=== PATIENT | female | born 1960 | race Caucasian/White ===

== ENCOUNTER 2016-04-18 12:25 | Observation (INO) | payer OTHER, MEDICAID ==
[~2016-04-18] VITALS: Ht 147.3 cm; Wt 66.7 kg
[~2016-04-18 12:25] MED LIST: ALBU18HF INHALATION; ALPR0.5T8 PO; CARV12.52 PO; DABI75CA3 PO; INSU100C8 SUBQ; OXYC1TAB24 PO
[2016-04-18 12:58] VITALS: BP 152/92; PULSE 92; RESP 20; O2SAT 100
--- NOTE | 2016-04-18 13:13 | NUR ---
Admit [facility] [place] Pt admitted to [facility] [place] approx 1215, direct via Dr Escobedo. Pt to have PICC line put in today, so no IV access until then. Pt is resting comfortably in bed, on RA, A&Ox3. Care continues
[2016-04-18] MEDS ORDERED: Ondansetron 2 mg/mL 2 mL Inj IVPUSH PRN (14:15)
[2016-04-18] MEDS ORDERED: Polyethylene Glycol (PEG) 17 Gm Powder PO PRN (14:15)
[2016-04-18] MEDS ORDERED: Alum-Mag Hydrox-Simeth 30 mL Suspension PO PRN (14:15)
[2016-04-18 14:43] LABS: BASOPHILS % (AUTO) 0.3 % (0-3); MONOCYTES % (AUTO) 10.4 % (4-12); Mean Corpuscular Hemoglobin 28.9 pg (27.0-35.0); Mean Corpuscular Volume 86.2 fL (81-100); NEUTROPHILS % (AUTO) 50.3 % (40-74); Platelet Count 354 bil/L (150-400)
[2016-04-18 15:06] LABS: ERYTHROCYTE SEDIMENTATION RATE 16 mm/hr (0-40)
--- NOTE | 2016-04-18 16:18 | PCM.HPMED ---
Subjective Date of Service Apr 18, 2016 Primary Provider: Admitting Physician: Gurdeep Jarrett Primary Care Physician: Vincent Attending Physician: Gurdeep Jarrett Admit Status: 23-Hour Observation, Admit to Blue Team Chief Complaint: Back pain History of Present Illness: This is a 55-year-old female with h/o IV drug use/hepatitis C, discitis involving T10-11 with associated vertebral osteomyelitis, chronic back pain, HTN , suicidal attempt, who had clinic appointment this morning with Dr. Escobedo after which she has been sent directly to [facility] for admission. She has been recently hospitalized on 03/16/16 for diskitis treatment with Vancomycin and cefepime. She opted to leave AMA on 03/23/16. She also was in [place] on for obstipation/vomiting evaluation, found to have discitis, but left AMA from [facility] on 02/03/2016 due to anxiety with her mother's health issues. During this admission patient report mid-thoracic back pain 8/10 which is sharp and constant. She states pain has been progressively getting worse and she is having hard times ambulating because of that. She takes Percocet at home. She denies chills, fever, nausea, vomiting, diarrhea, constipation, chest pain, shortness of breath, troubles urinating. She endorses weakness that has been progressively getting worse for about a month. She denies current alcohol and drug use. She has about 40 pack year smoking history but admits to currently smoking about three cigarettes a day. She is and lives alone in [place]. Review of Systems: A comprehensive review of system has been conducted and is negative with the exception mentioned in the history of present illness. Allergies Coded Allergies: citalopram (Verified Allergy, Intermediate, HALLUCINATE, 09/14/13) hydrocodone (Verified Allergy, Intermediate, HEADACHE, 09/14/13) hydromorphone (Verified Allergy, Intermediate, ACTS WEIRD, 09/14/13) paroxetine (Verified Allergy, Intermediate, ACTS WEIRD, 09/14/13) sertraline (Verified Allergy, Intermediate, HALLUCINATIONS, 09/14/13) acetaminophen (Verified Adverse Reaction, Intermediate, HEADACHE, 03/18/16) pt reports taking Percocet regularly without problems Home Medications Alprazolam 0.5 mg tid Coreg 12.5 mg bid Percocet 10/325 mg qid Albuterol Sulfate 200 Puff/18 gm inhaler prn PMH Hepatitis C Chronic back pain Ischemic colitis associated with low blood pressure, told not to use Tylenol or NSAIDs in 2002 Suicidal attempt COPD, GERD, Hypertension Surgical History Multiple gynecological surgeries Carpal tunnel b/l Trigger finger b/l Social History Hx Alcohol Use: No Hx Substance Use: Yes (Heroine use 21 years ago.) Smoking Status: Current Every Day Smoker Exam Vital Signs Vital Sign - Last Date Time Temp Pulse Resp B/P Pulse Ox O2 Delivery O2 Flow Rate FiO2 04/18/16 12:58 36.7 92 20 152/92 100 Room Air Exam General: Alert, Oriented X3 NAD Head: Normocephalic, atraumatic Eyes: SOLANGE, EOMI, no scleral Icterus Oropharynx: [place] moist oral mucosa Neck: Supple, trachea midline, no adenopathy Chest: Clear to auscultation B/L, mild wheezing and rhonchi on the right Heart: RRR, Normal S1, S2, no murmurs noted Abdomen: Soft, non-tender. Bowel sounds are normoactive. No guarding or rebound. Extremities: No cyanosis, clubbing or edema. Skin: No acute rashes or lesions noted Neuro: Cranial nerves II-XII intact, no focal findings. Psych: Normal judgement and insight. Lab and Diagnostics Result Diagram: 04/18/16 1350 04/18/16 1315 Microbiology Blood cultures pending X-Rays, CTs and MRIs FROM THE PREVIOUS ADMISSION: PROCEDURE: MRI THORACIC SPINE WITH AND WITHOUT CONTRAST ([id number]) INDICATIONS: back pain TECHNIQUE: Noncontrast sagittal T1 spin echo and T2 fast spin echo, sagittal STIR, axial T1 and T2 fast spin echo through the thoracic spine. After the administration of contrast, axial and sagittal T1 spin echo with fat saturation through the thoracic spine. COMPARISON: None. FINDINGS: Image quality: Excellent. Alignment and curvature: There is mild diffuse thoracic kyphosis. Mild grade 1 retrolisthesis of T12 on L1. Marrow: Severe STIR signal elevation within the T11 and T12 intervertebral discs is present. Spinal cord: Visualized spinal cord is of normal signal and size, without abnormal enhancement. Paraspinous soft tissues: No paravertebral masses. Paraspinous ill defined soft tissue enhancement and T2 signal elevation at T11-T12 is present, measuring 19 mm anteroposterior anteriorly. Disc space levels: There is fluid signal intensity within the T11-T12 disc space. Mild diffuse disc bulge is present, causing mild canal stenosis. No epidural abscess. Mild enhancement within the anterior epidural space. IMPRESSION: T11-T12 discitis, without associated epidural abscess. Mild disc bulge at T11- T12 is present, causing mild canal stenosis. There is paraspinous soft tissue edema and enhancement, without paraspinous abscess. Findings discussed with Dr. Jennings on 03.16.16 at 1610 hrs. Assessment & Plan Patient is a 55 year old female with h/o Hepatitis C and IVDA presenting to [facility] with back pain 11/21 associated with discitis at T10-11 and associated osteomyelitis. Prior hospitalization for discitis on 03/16/16, treated with Linezolid orally and Ertapenem IV. Discharged AMA on 03/23/16. # Discitis, T10-11, acute, present on admission - Clinically stable - PICC line to be placed in AM - Will check procalcitonin and CRP now - Blood cultures pending - Abx per Dr. Escobedo # Chronic back pain, present on admission - Percocet 10/325 mg PO q6h prn # Hypertension, chronic - Coreg 12.5 mg bid # Anxiety, chronic - Alprazolam 0.5 tid Status: stable Code: full Disposition: most likely home in 1-2 days with IV ABX Pain Evaluation: Adequate Pain Control GI Prophylaxis: Not indicated VTE Prophylaxis: SCDs Resuscitation Status: CPR: Attempt Resuscitation Attending Statement The patient was seen and examined together with Dr. Calabrese on 04/18/2016 and I agree with the history, exam and plan as outlined in the note above. SUKHWINDER CALABRESE DO Apr 18, 2016 16:18 Dwain Charles MD Apr 19, 2016 10:14
[2016-04-18] MEDS: ALPRAZolam 0.5 mg Tablet PO PRN (18:15)
[2016-04-18] MEDS: oxyCODONE-Acetamin 10-325 mg Tablet PO PRN (18:15)
[2016-04-18] MEDS ORDERED: CALC500T9 PO (18:23)
[2016-04-18] MEDS ORDERED: OXYC-466 PO (18:23)
[2016-04-18 18:45] VITALS: BP 153/94; PULSE 100; RESP 20; O2SAT 98
[2016-04-18 20:36] VITALS: BP 136/88; PULSE 94; RESP 20; O2SAT 98
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
[2016-04-19] MEDS: oxyCODONE-Acetamin 10-325 mg Tablet PO PRN ×4 (00:23→22:30)
[2016-04-19] MEDS: ALPRAZolam 0.5 mg Tablet PO PRN ×3 (01:51→16:35)
--- NOTE | 2016-04-19 04:33 | NUR ---
Uneventful night Patient has remained alert and oriented, reports back pain at 8/10, Percocet ineffective, but no increase in pain. Patient reports wanting to discharge and is hoping that PICC line can be placed early today. Cooperative and pleasant with care. Intentional rounding in place.
[2016-04-19 04:59] VITALS: BP 122/54; PULSE 84; RESP 20; O2SAT 97
[2016-04-19 12:55] VITALS: BP 106/67; PULSE 90; RESP 22; O2SAT 94
--- NOTE | 2016-04-19 18:59 | PCM.PNMED ---
Subjective Date of Service Apr 19, 2016 Subjective Pt had an uneventful night. She is clinically stable and asymptomatic. The only complain she has is back pain. Exam Vital Signs Vital Sign - Last Date Time Temp Pulse Resp B/P Pulse Ox O2 Delivery O2 Flow Rate FiO2 04/19/16 12:55 36.9 90 22 106/67 94 Room Air Intake and Output 04/18/16 04/18/16 04/19/16 Cumulative From/Thru 15:00 23:00 07:00 04/18/16 12:59 - 04/19/16 05:46 Intake Total 320 ml 300 ml 620 ml Output Total 100 ml 100 ml Balance 220 ml 300 ml 520 ml Intake Oral 320 ml 300 ml 620 ml Output Urine Total 100 ml 100 ml # Voids 2 2 4 # Bowel Movements 1 0 1 Exam General: Alert, Oriented X3 NAD Head: Normocephalic, atraumatic Neck: Supple Chest: Clear to auscultation B/L, mild wheezing and rhonchi on the right Heart: RRR, Normal S1, S2, no murmurs noted Abdomen: Soft, non-tender. Bowel sounds are normoactive. Extremities: No cyanosis, clubbing or edema. Psych: Normal judgement and insight. Lab and Diagnostics Result Diagram: 04/18/16 1350 04/18/16 1315 Microbiology Blood cultures pending X-Rays, CTs and MRIs FROM THE PREVIOUS ADMISSION: PROCEDURE: MRI THORACIC SPINE WITH AND WITHOUT CONTRAST ([id number]) INDICATIONS: back pain TECHNIQUE: Noncontrast sagittal T1 spin echo and T2 fast spin echo, sagittal STIR, axial T1 and T2 fast spin echo through the thoracic spine. After the administration of contrast, axial and sagittal T1 spin echo with fat saturation through the thoracic spine. COMPARISON: None. FINDINGS: Image quality: Excellent. Alignment and curvature: There is mild diffuse thoracic kyphosis. Mild grade 1 retrolisthesis of T12 on L1. Marrow: Severe STIR signal elevation within the T11 and T12 intervertebral discs is present. Spinal cord: Visualized spinal cord is of normal signal and size, without abnormal enhancement. Paraspinous soft tissues: No paravertebral masses. Paraspinous ill defined soft tissue enhancement and T2 signal elevation at T11-T12 is present, measuring 19 mm anteroposterior anteriorly. Disc space levels: There is fluid signal intensity within the T11-T12 disc space. Mild diffuse disc bulge is present, causing mild canal stenosis. No epidural abscess. Mild enhancement within the anterior epidural space. IMPRESSION: T11-T12 discitis, without associated epidural abscess. Mild disc bulge at T11- T12 is present, causing mild canal stenosis. There is paraspinous soft tissue edema and enhancement, without paraspinous abscess. Findings discussed with Dr. Jennings on 03.16.16 at 1610 hrs. Assessment & Plan Patient is a 55 year old female with h/o Hepatitis C and IVDA presenting to [facility] with back pain 11/21 associated with discitis at T10-11 and associated osteomyelitis. Prior hospitalization for discitis on 03/16/16, treated with Linezolid orally and Ertapenem IV. Discharged AMA on 03/23/16. # Discitis, T10-11, chronic, present on admission - Clinically stable w/shx of infection - Procalcitonin 0.05 - Blood cultures pending - PICC line as urine tox screen is negative - Start IV Vancomycin 1.25 g q12h. Start first dose today. Patient will continue with the treatment for 6 weeks as an outpatient. - Start Cipro 750 mg PO bid # Chronic back pain, present on admission - Percocet 10/325 mg PO q6h prn # Hypertension, chronic, stable - Coreg 12.5 mg bid # Anxiety, chronic, presumed stable - Alprazolam 0.5 tid Status: stable Code: full Disposition: discharged tomorrow with a home infusion company to follow her. GI Prophylaxis: Not indicated VTE Prophylaxis: SCDs Resuscitation Status: CPR: Attempt Resuscitation Attending Statement The patient was seen and examined together with Dr. Stevens on 04/19/2016 and I agree with the history, exam and plan as outlined in the note above. SUKHWINDER STEVENS DO Apr 19, 2016 18:58 Dwain Charles MD Apr 20, 2016 09:23
--- NOTE | 2016-04-19 19:32 | NUR ---
Antibiotics: Patient will be getting a PICC line placed tomorrow AM. Per Dr Escobedo infectious disease patient is to have her first dose of Vancomycin today. IV therapy placed a peripheral line in patient for her IV Antibiotic dose today. NOC nurse informed of the plan for Antibiotic to be given tonight.
[2016-04-19] MEDS ORDERED: 0.9% Sodium Chloride 250 ML ONE (19:54)
[2016-04-19 20:41] VITALS: BP 100/64; PULSE 87; RESP 20; O2SAT 96
--- NOTE | 2016-04-19 22:32 | NUR ---
IV site Patient's IV site became pink, puffy, and painful during Vancomycin infusion. Patient received 186/250ml of IV bag. Medication was infusing slowly at 100ml/hr. IV therapist placed IV site around 1900, but it took three attempts. MD paged at 2200 with information, verbal order to remove bad IV site and just to wait until PICC line is placed in the morning for next dose. Patient updated on plan and that MD is aware and okay with no IV access overnight and partial administration of the 2030 scheduled Vanco dose.
[2016-04-20] MEDS: ALPRAZolam 0.5 mg Tablet PO PRN ×2 (00:53→10:47)
[2016-04-20 05:18] VITALS: BP 114/68; PULSE 78; RESP 20; O2SAT 97
[2016-04-20] MEDS: oxyCODONE-Acetamin 10-325 mg Tablet PO PRN (07:55)
--- NOTE | 2016-04-20 11:57 | DRSVH ---
PROCEDURE: X-RAY PICC LINE PLACEMENT BY NURSE ([id number]) INDICATIONS: IV ANTIBIOTICS COMPARISON: None. FINDINGS: PICC was placed by the intravenous therapy team from the right side. Fluoroscopic spot fi lm demonstrates tip of PICC in the cavoatrial junction. IMPRESSION: Tip of PICC lies at the caval atrial junction. Dictated by: Alex Beltran M.D. on 04/20/2016 at 11:55 Approved by: Alex Beltran M.D. on 04/20/2016 at 11:55
--- NOTE | 2016-04-20 12:04 | NUR ---
Social Work: Brief Note Data: Pt is an 86 y/o female admitted for diskitis. Pt's PCP is not listed, pt's insurance is [employer]/disabled with [facility] Medicaid secondary. EMR reviewed, pt discussed in rounds. MD reports pt likely ready for d/c today and will need IVABX at d/c. CARDIOVASCULAR RADIOLOGIC TECHNOLOGIST referred to rotating calendar, [facility] is this week. CARDIOVASCULAR RADIOLOGIC TECHNOLOGIST called Kimberly Cantu with [facility] who did not answer the phone, CARDIOVASCULAR RADIOLOGIC TECHNOLOGIST left a message and gave access. CARDIOVASCULAR RADIOLOGIC TECHNOLOGIST called main line at [phone]. CARDIOVASCULAR RADIOLOGIC TECHNOLOGIST spoke with the pharmacist, Lyric who states pt's insurance will cover requested H&P, facesheet, labs, and d/c orders be faxed to them. Orders not yet available, CARDIOVASCULAR RADIOLOGIC TECHNOLOGIST faxed the rest of this information. CARDIOVASCULAR RADIOLOGIC TECHNOLOGIST text paged request to MD for prescription. CARDIOVASCULAR RADIOLOGIC TECHNOLOGIST will continue to follow. Assessment: Pt who is independent at baseline. Plan: Pt will d/c home via POV with [facility] IVABX at home. CARDIOVASCULAR RADIOLOGIC TECHNOLOGIST faxing informations, awaiting prescription from MD. CARDIOVASCULAR RADIOLOGIC TECHNOLOGIST will continue to follow. RAE Zapata
--- NOTE | 2016-04-20 14:22 | PCM.DIMED ---
SUKHWINDER CALABRESE DO 04/20/16 1422: Discharge Instructions Date of Service Apr 20, 2016 Dates of Hospitalization Apr 18, 2016 at 12:33 Discharge Diagnosis Discharge Diagnosis # Discitis, T10-11, chronic, present on admission, ongoing # Chronic back pain, present on admission # Hypertension, chronic, stable # Anxiety, chronic, presumed stable Medication Instructions Per Dr. Escobedo's instructions: 1. The home IV dose to start with should probably be around Vanco 1.25 g q.12 h. x 6 weeks with frequent followup on the drug levels as an outpatient, and I have written for these orders. 2. The Cipro dose should be 750 p.o. b.i.d. 3. Laboratory work will be done every Friday and should include weekly vancomycin trough, CBC, CMP and CRP. These should be faxed to my office. 4. I will see the patient weekly starting April 24 after her discharge. Diet No restrictions Activity No restrictions Call your provider Fever or Chills, Shortness of breath, Bleeding, Chest pain, Vomitting, Excessive diarrhea, Weakness (unilateral) Patient Instructions Follow-up Provider: Denis Escobedo MD Follow-up with PCP in: 1 week Dwain Charles MD 04/21/16 1125: SUKHWINDER CALABRESE DO Apr 20, 2016 14:22 Dwain Charles MD Apr 21, 2016 11:25
[2016-04-20] MEDS ORDERED: VANC1.252 IV (14:30)
[2016-04-20] MEDS ORDERED: CIPR750T4 PO (14:30)
--- NOTE | 2016-04-20 14:52 | NUR ---
Social Work: Discharge Data: Pt is on day 2 of hospitalization. EMR reviewed, d/c orders are in. PORT CRANE OPERATOR received prescriptions and d/c orders from . PORT CRANE OPERATOR spoke with Lyric with [facility] who states they can open with pt tomorrow and that they will call pt regarding a time for them to meet. No further d/c planning needs at this time. PORT CRANE OPERATOR will continue to follow if needs arise. Assessment: Pt who is independent at baseline. Plan: Pt will d/c home via POV today with [facility] for IVABX at home. No further d/c planning needs at this time. PORT CRANE OPERATOR will continue to follow if needs arise. REA Zapata
--- NOTE | 2016-04-20 15:17 | NUR ---
Discharge Patient given discharge orders. Patient given hard copies of prescriptions. Patient given medication list and explained when next dose is due. Patient given informational packet. Patient called friend for transportation at time of discharge.
--- NOTE | 2016-04-20 16:04 | PCM.DC.MED ---
Discharge Summary Date of Service Apr 20, 2016 Dates of Hospitalization Date of Hospital Admission Apr 18, 2016 at 12:33 Date of Discharge: Apr 20, 2016 Providers: Admitting Physician: Gurdeep Jarrett Primary Care Physician: Other,Physician Attending Physician: Gurdeep Jarrett Diagnosis at Time of Discharge Diagnosis at Time of Discharge # Discitis, T10-11, chronic, present on admission, ongoing # Chronic back pain, present on admission # Hypertension, chronic, stable # Anxiety, chronic, presumed stable Consultations Infectious disease, Dr. Escobedo Procedures XRay, CTs & MRIs FROM THE PREVIOUS ADMISSION: PROCEDURE: MRI THORACIC SPINE WITH AND WITHOUT CONTRAST ([id number]) INDICATIONS: back pain TECHNIQUE: Noncontrast sagittal T1 spin echo and T2 fast spin echo, sagittal STIR, axial T1 and T2 fast spin echo through the thoracic spine. After the administration of contrast, axial and sagittal T1 spin echo with fat saturation through the thoracic spine. COMPARISON: None. FINDINGS: Image quality: Excellent. Alignment and curvature: There is mild diffuse thoracic kyphosis. Mild grade 1 retrolisthesis of T12 on L1. Marrow: Severe STIR signal elevation within the T11 and T12 intervertebral discs is present. Spinal cord: Visualized spinal cord is of normal signal and size, without abnormal enhancement. Paraspinous soft tissues: No paravertebral masses. Paraspinous ill defined soft tissue enhancement and T2 signal elevation at T11-T12 is present, measuring 19 mm anteroposterior anteriorly. Disc space levels: There is fluid signal intensity within the T11-T12 disc space. Mild diffuse disc bulge is present, causing mild canal stenosis. No epidural abscess. Mild enhancement within the anterior epidural space. IMPRESSION: T11-T12 discitis, without associated epidural abscess. Mild disc bulge at T11- T12 is present, causing mild canal stenosis. There is paraspinous soft tissue edema and enhancement, without paraspinous abscess. Findings discussed with Dr. Jennings on 03.16.16 at 1610 hrs. Brief History Per Admitting Physician: Gurdeep Jarrett: This is a 55-year-old female with h/o IV drug use/hepatitis C, discitis involving T10-11 with associated vertebral osteomyelitis, chronic back pain, HTN , suicidal attempt, who had clinic appointment this morning with Dr. Escobedo after which she has been sent directly to [facility] for admission. She has been recently hospitalized on 03/16/16 for diskitis treatment with Vancomycin and cefepime. She opted to leave AMA on 03/23/16. She also was in [place] on for obstipation/vomiting evaluation, found to have discitis, but left AMA from [facility] on 02/03/2016 due to anxiety with her mother's health issues. During this admission patient report mid-thoracic back pain 8/10 which is sharp and constant. She states pain has been progressively getting worse and she is having hard times ambulating because of that. She takes Percocet at home. She denies chills, fever, nausea, vomiting, diarrhea, constipation, chest pain, shortness of breath, troubles urinating. She endorses weakness that has been progressively getting worse for about a month. She denies current alcohol and drug use. She has about 40 pack year smoking history but admits to currently smoking about three cigarettes a day. She is and lives alone in [place]. Hospital Course Patient is a 55 year old female with h/o Hepatitis C and IVDA presenting to [facility] with back pain 8/10 associated with discitis at T10-11 and associated osteomyelitis. Prior hospitalization for discitis on 03/16/16, treated with Linezolid orally and Ertapenem IV. Discharged AMA on 03/23/16. # Discitis, T10-11, chronic, present on admission - Clinically stable w/shx of infection - Procalcitonin 0.05 - Blood cultures pending - PICC line as urine tox screen is negative - Start IV Vancomycin 1.25 g q12h. Start first dose today. Patient will continue with the treatment for 6 weeks as an outpatient. - Start Cipro 750 mg PO bid - Pt to follow-up with Infectious Disease as an outpatient, pt to call for an appointment. # Chronic back pain, present on admission - Percocet 10/325 mg PO q6h prn # Hypertension, chronic, stable - Coreg 12.5 mg bid # Anxiety, chronic, presumed stable - Alprazolam 0.5 tid Status: stable Code: full Disposition: discharged home with a home infusion company to follow her. Exam Vital Signs (Last) Date Time Temp Pulse Resp B/P Pulse Ox O2 Delivery O2 Flow Rate FiO2 04/20/16 05:18 36.3 78 20 114/68 97 Room Air Exam General: Alert, Oriented X3 NAD Head: Normocephalic, atraumatic Eyes: SOLANGE, EOMI, no scleral Icterus Oropharynx: [place] moist oral mucosa Neck: Supple, trachea midline, no adenopathy Chest: Clear to auscultation B/L, mild wheezing and rhonchi on the right Heart: RRR, Normal S1, S2, no murmurs noted Abdomen: Soft, non-tender. Bowel sounds are normoactive. No guarding or rebound. Extremities: No cyanosis, clubbing or edema. PICC line in place, right arm Skin: No acute rashes or lesions noted Neuro: Cranial nerves II-XII intact, no focal findings. Psych: Normal judgement and insight. Test 04/18/16 00:00 04/18/16 13:15 04/18/16 13:50 04/18/16 19:00 Procalcitonin < 0.05ng/mL (See Comment) Sodium Level 139mEq/L (134-144) Potassium Level 4.6mEq/L (3.5-5.2) Chloride Level 96mEq/L (97-108) Carbon Dioxide Level 27mmol/L (18-29) Blood Urea Nitrogen 9mg/dL (6-24) Creatinine 0.53mg/dL (0.57-1.00) Estimat Glomerular Filtration Rate 171mL/min (>59) Glucose Level 91mg/dL (60-99) Calcium Level 9.9mg/dL (8.5-10.1) Total Bilirubin 0.3mg/dL (0.0-1.2) Aspartate Amino Transf (AST/SGOT) 29U/L (0-50) Alanine Aminotransferase (ALT/SGPT) 19U/L (0-32) Alkaline Phosphatase 122U/L (25-150) C-Reactive Protein 0.3mg/dL (0.0-0.5) Total Protein 8.0g/dL (6.4-8.4) Albumin 4.1g/dL (3.4-5.0) White Blood Count 9.4th/mm3 (3.8-10.1) Red Blood Count 4.78mil/mm3 (3.90-5.20) Hemoglobin 13.8g/dL (12.0-15.6) Hematocrit 41.2% (35.0-46.0) Mean Corpuscular Volume 86.2fL (81-100) Mean Corpuscular Hemoglobin 28.9pg (27.0-35.0) Mean Corpuscular Hemoglobin Concent 33.5% (32.0-37.0) Red Cell Distribution Width 13.2% (12.3-15.4) Platelet Count 354bil/L (150-400) Neutrophils (%) (Auto) 50.3% (40-74) Lymphocytes (%) (Auto) 35.8% (14-46) Monocytes (%) (Auto) 10.4% (4-12) Eosinophils (%) (Auto) 3.0% (0-5) Basophils (%) (Auto) 0.3% (0-3) Erythrocyte Sedimentation Rate 16mm/hr (0-40) Hold Urine Received (Received) Urine Opiates Screen Negative Urine Methadone Screen Negative Urine Barbiturates Screen Negative Urine Amphetamines Screen Negative Urine Benzodiazepines Screen Negative Urine Cocaine Metabolite Screen Negative Urine Cannabinoids Screen Negative Test 04/19/16 07:38 Hold Purple Top Tube Received (Received) Hold [place] Top Tube Received (Received) Microbiology Results Blood cultures pending Discharge Medications Discharge Medications Carvedilol (Carvedilol) 12.5 Mg Tablet 12.5 MG PO BID (Reported) Ciprofloxacin (Ciprofloxacin) 750 Mg Tablet 750 MG PO BID Prescribed by: SUKHWINDER CALABRESE DO Vancomycin HCl/D5w (Vancomycin-D5w 1.25 G/250 ml) 1.25 Gm/250 Ml Plast..bag 1.25 GM IV BID Prescribed by: SUKHWINDER CALABRESE DO As needed Albuterol Sulfate (Ventolin HFA Inhaler) 200 Puff/18 Gm Inhaler INHALATION PRN For Shortness of Breath (Reported) Alprazolam (Alprazolam) 0.5 Mg Tablet 0.5 MG PO TID PRN PRN For Anxiety ( Reported) Calcium Carbonate (Tums) 500 Mg Tab.chew 1,000 MG PO DAILY PRN PRN For Dyspepsia or Heartburn (Reported) oxyCODONE-Acetaminophen 10-325 mg (oxyCODONE-Acetaminophen 10-325 mg) 1 Each Tablet 1 TAB PO Q6H PRN PRN For Pain (Reported) Additional med instructions Per Dr. Escobedo's instructions: 1. The home IV dose to start with should probably be around Vanco 1.25 g q.12 h. x 6 weeks with frequent followup on the drug levels as an outpatient, and I have written for these orders. 2. The Cipro dose should be 750 p.o. b.i.d. 3. Laboratory work will be done every Friday and should include weekly vancomycin trough, CBC, CMP and CRP. These should be faxed to my office. 4. I will see the patient weekly starting April 24 after her discharge. Followup Plan Discharge Diet: No restrictions Discharge Activity: No restrictions Follow-up Provider: Denis Escobedo MD Follow-up with PCP in: 1 week Attending Statement The patient was seen and examined together with Dr. Calabrese on 04/20/2016 and I agree with the history, exam and plan as outlined in the note above. SUKHWINDER CALABRESE DO Apr 20, 2016 16:03 Dwain Charles MD Apr 21, 2016 11:26
== END 2016-04-20 16:15 | disposition home or self-care (01) ==
LOC: MPC 12:33 → INTOOBSV 12:33
PROVIDERS: ADMIT Internal Medicine; ATTEND Family Medicine
DX: M46.44 Discitis, unspecified, thoracic region (principal); I10 Essential (primary) hypertension; F41.9 Anxiety disorder, unspecified; B18.2 Chronic viral hepatitis C; J44.9 Chronic obstructive pulmonary disease, unspecified; K21.9 Gastro-esophageal reflux disease without esophagitis; K55.9 Vascular disorder of intestine, unspecified; F15.90 Other stimulant use, unspecified, uncomplicated; F17.210 Nicotine dependence, cigarettes, uncomplicated; Z91.5 Personal history of self-harm
CPT/HCPCS: 36415; 36569; 77001; 80053; 82308; 85025; 85651; 86140; 87040; 87081; 96365; 96366; G0378; G0379; G0480; J3370; J7050

== ENCOUNTER 2016-05-07 17:52 | Inpatient (IN) | payer OTHER, MEDICAID ==
[~2016-05-07] VITALS: Ht 147.3 cm; Wt 66.4 kg
[~2016-05-07 17:52] MED LIST changes: +CALC500T9 PO; +CIPR750T4 PO; -DABI75CA3 PO; -INSU100C8 SUBQ; +OXYC-466 PO; -OXYC1TAB24 PO; +VANC1.252 IV
[2016-05-07 18:30] VITALS: BP 170/100; PULSE 92; RESP 20; O2SAT 98
--- NOTE | 2016-05-07 19:39 | ED.REPORT ---
HPI-General Illness Date of Service May 07, 2016 ED Provider: Gabriel Yadav MD History of Present Illness: OCC Pt is a 55 year old female with a hx of hepatitis, ischemic colitis, and chronic discitis presenting to the ED complaining of sharp 8/10 back pain. Associated symptoms include heartburn for the past few days and pain in her liver. Denies nausea, vomiting, dysuria, diaphoresis, diarrhea. She reports that the pain was at a 5 but increased in the last few days. The pt had an infection diagnosed in January 2016 and is on IV vancomycin and oral Cipro. She was sent to the ED today by Dr. Escobedo due to abnormal labs. The pt had labs today showing high WBC and high CRP. Nursing Notes Stated Complaint: SENT BY , BLOODWORK ISSUE Chief Complaint: General Complaint Nursing Notes Reviewed: Yes ([employer] not reconciled) Allergies: Coded Allergies: acetaminophen (Verified Adverse Reaction, Intermediate, HEADACHE, 05/07/16) pt reports taking Percocet regularly without problems citalopram (Verified Adverse Reaction, Intermediate, HALLUCINATE, 05/07/16) hydrocodone (Verified Adverse Reaction, Intermediate, HEADACHE, 05/07/16) hydromorphone (Verified Adverse Reaction, Intermediate, ACTS WEIRD, ) paroxetine (Verified Adverse Reaction, Intermediate, ACTS WEIRD, 05/07/16) sertraline (Verified Adverse Reaction, Intermediate, HALLUCINATIONS, ) Uncoded Allergies: surgical roque (Allergy, Unknown, 05/07/16) Scheduled Carvedilol (Carvedilol) 12.5 Mg Tablet 12.5 MG PO BID Ciprofloxacin Hcl (Cipro (eq) 500 MG-6 Tab Prepack) 1 Pkg Pkg 500 MG PO BID Lactobacillus Acidophilus (Acidophilus Probiotic) 1 Mg Tablet 1 TAB PO DAILY Vancomycin HCl/D5w (Vancomycin-D5w 1.25 G/250 ml) 1.25 Gm/250 Ml Plast..bag 1.25 GM IV BID Scheduled PRN Alprazolam (Alprazolam) 0.5 Mg Tablet 0.5 MG PO TID PRN PRN For Anxiety Calcium Carbonate (Tums) 500 Mg Tab.chew 1,000 MG PO DAILY PRN PRN For Dyspepsia or Heartburn oxyCODONE-Acetaminophen 10-325 mg (oxyCODONE-Acetaminophen 10-325 mg) 1 Each Tablet 1 TAB PO 5XD PRN PRN For Pain General Time Seen by MD: 19:31 Chief Complaint Back pain Hx Obtained From: Patient Arrived By: Walk-in Sudden in Onset?: No Onset Occurred: Onset unknown Symptom Duration: Since onset Location: : Back Quality: Painful Severity: Current: Pain level 8 out of 10 Severity: Maximum: Severe Recent Healthcare: Recent doctor visit, Recent hospitalization Similar Sx Previous: Yes Past Medical History Past Medical History Notes: Patient admitted April 18 through 04/20/2016 for T10 to T11 chronic discitis discharged on IV vancomycin at home and oral ciprofloxacin Noted March 16 through March 23 when she left AMA for discitis on Vanco plus cefepime Discitis originally diagnosed [place] in January 2016, but again left AMA Past Medical History Hepatitis C History of IVDA Chronic back pain Ischemic colitis Suicidal attempt Discitis at T10-T11, history of vertebral osteomyelitis Reports: COPD, GERD, Hypertension Past Surgical History Reports: Back/neck surgery Smoking History Current Every Day Smoker Social History Alcohol Use: Denies alcohol use Drug Use: IV drugs (per EMR) Other Social History: Good social support Ambulatory Status Independent Review of Systems Heartburn Full Review of Systems GI: Denies: Diarrhea, Nausea, Vomiting Female: Denies: Dysuria Musculoskeletal: Reports: Back pain Skin: Denies Diaphoresis Complete sys rev & neg: except as marked. Physical Exam Vital Signs Vital Signs Date Time Temp Pulse Resp B/P Pulse Ox O2 Delivery O2 Flow Rate FiO2 05/07/16 18:30 36.6 92 20 170/100 98 Initial VS: Reviewed, Vital signs abnormal (no fever, but HTN) Head / Eyes: Atraumatic, Normocephalic, PERRL ENT: Mucous membranes moist, Conjunctiva normal, No scleral icterus Respiratory: Breath sounds normal, Clear to auscultation, No respiratory distress Abdomen / GI: Soft, Non-tender (Including right upper quadrant), No guarding, No rebound, No distention Extremities: Vascular intact, Neuro intact, No swelling, No tenderness Skin: Warm, Dry, No cyanosis Neurologic: Alert, Oriented, Nonfocal Psychiatric: Mood/affect normal, Behavior normal, Normal thought content General/Constitutional: Awake, Alert, Not toxic appearing Behavior: Positive: Anxious, Tearful Appearance / Presentation: Positive: Uncomfortable Back: Atraumatic Don't appreciate palpable abnormality of spine. Interpretation & Diagnostics Interpretation & Diagnostics: PROCEDURE: MRI THORACIC SPINE WITH AND WITHOUT CONTRAST IMPRESSION: 1. T10/T11 osteomyelitis/discitis similar in appearance to the study dated 04/16/16. 2. Unchanged mild cord deformity without cord signal abnormality. Dictated by: Brittni Lau M.D. on 05/07/2016 at 21:08 Lab Results Interpretation Result Diagram: 05/07/16191805/07/161918 Test 05/07/16 19:19 White Blood Count 12.8th/mm3 (3.8-10.1) Red Blood Count 5.02mil/mm3 (3.90-5.20) Hemoglobin 14.3g/dL (12.0-15.6) Hematocrit 43.8% (35.0-46.0) Mean Corpuscular Volume 87.3fL (81-100) Mean Corpuscular Hemoglobin 28.5pg (27.0-35.0) Mean Corpuscular Hemoglobin Concent 32.6% (32.0-37.0) Red Cell Distribution Width 14.0% (12.3-15.4) Platelet Count 270bil/L (150-400) Neutrophils (%) (Auto) 66.1% (40-74) Lymphocytes (%) (Auto) 24.0% (14-46) Monocytes (%) (Auto) 7.6% (4-12) Eosinophils (%) (Auto) 1.7% (0-5) Basophils (%) (Auto) 0.2% (0-3) Prothrombin Time 9.7sec (8.1-12.5) Prothromb Time International Ratio 0.91ratio Sodium Level 139mEq/L (134-144) Potassium Level 4.4mEq/L (3.5-5.2) Chloride Level 102mEq/L (97-108) Carbon Dioxide Level 25mmol/L (18-29) Blood Urea Nitrogen 16mg/dL (6-24) Creatinine 0.79mg/dL (0.57-1.00) Estimat Glomerular Filtration Rate 108mL/min (>59) Glucose Level 89mg/dL (60-99) Lactic Acid Level 1.4mmol/L (0.4-2.0) Calcium Level 9.3mg/dL (8.5-10.1) Magnesium Level 1.9mg/dL (1.6-2.6) Total Bilirubin 0.2mg/dL (0.0-1.2) Aspartate Amino Transf (AST/SGOT) 21U/L (0-50) Alanine Aminotransferase (ALT/SGPT) 15U/L (0-32) Alkaline Phosphatase 122U/L (25-150) Total Protein 8.2g/dL (6.4-8.4) Albumin 4.0g/dL (3.4-5.0) Random Vancomycin Level 2.3ug/mL Rx Lab Results Interpretation: CBC possible leukocytosis CMP normal Blood cultures pending lactic acid pending UA, suspect contaminant - culture pending X-Ray Chest Interpretation Chest Xray Interpretation: IMPRESSION: Mild left basilar radiopacities. Differential considerations include atelectasis, aspiration, and infection. Dictated by: Brittni Lau M.D. on 05/07/2016 at 20:11 View: Portable, 1 view Interpretation / Wet Read by: Interpret - Radiologist Re-Eval/Medical Decision Med Decision/Clinical Course This is a 55-year-old female with known T10-T11 discitis secondary to IV drug abuse is been in the hospital since it was first diagnosed in January. She is currently receiving vancomycin at home, as well as oral Cipro-she has labs drawn every Friday by home health. She had labs drawn yesterday that now reveal climbing white count and sedimentation rate-so she was referred in. She is complaining of increase in back pain in the past several days. She denies any new numbness weakness or paresthesias, she does not think she has had a fever. She does appear fatigued. She denies cough or respiratory symptoms, she denies dysuria, she denies any redness or drainage around the PICC line site. On exam she is currently afebrile. She is complaining of some back pain and did receive some pain medicine in the department while workup was pursued. Continues to show ongoing leukocytosis, which is new. Blood cultures are been drawn. We have attempted to draw blood cultures through the PICC line as well to evaluate for the possibility of line sepsis however the line would not draw. Would not draw for lab or for the nurse, but I asked IV therapy to see if they could get a culture out of it. Chest x-ray is negative for visible infiltrate, radiologist reads possible atelectasis-however on my review I do not see any infiltrate or signs of infection and the patient does not have respiratory symptoms. Given the recurrent leukocytosis, repeat MRI of the thoracic spine to evaluate for the possibility of an epidural abscess was obtained-this continues to demonstrate discitis, but there are no signs of abscess or worsening, and no significant interval change. She was referred in by other infectious disease specialist. I discussed the case with him. The plan is to admit her to the hospital, start IV cefotetan, continue IV vancomycin, and ID will follow. Case is been discussed with the admitting hospitalist. Source of Hx: Old records Time of Eval: 20:08 Patient Status: Condition improved Re-Evaluation/Progress Note: Discussed which pain medications work well for the pt. Consultation #1: Referral / Consult Name: Denis Escobedo MD Call Returned at: 20:18 Note: If the source for the pain is not identified, prescribe Vanc and Cefepime. Consultation #2: Referral / Consult Name: Don Caldwell MD Consulted With: Hospitalist Call Returned at: 22:39 Float Nurse: Will see patient, Agrees with plan, Accepts admit Differential Diagnosis: Negative: Abdominal pain, Allergies, Fracture, G-tube repair/replacement, Hematoma, Neutropenia, Pneumonia Counseled Regarding: Diagnosis, Lab results, Need for follow-up, When/why to return to ED Discharge & Departure Primary Impression: Thoracic discitis Additional Impression: Leukocytosis Leukocytosis type: unspecified Qualified Code: D72.829 - Elevated white blood cell count, unspecified Disposition: ADMITTED TO HOSPITAL Discharge Condition All VS Reviewed: Yes Condition: Improved Referrals: OTHER,PHYSICIAN (PCP) Denis Escobedo MD Attestation Portions of this note were transcribed by Kitty Borrero. I, Dr. Yadav personally performed the history, physical exam and medical decision-making; I reviewed and confirmed the accuracy of the information in the transcribed note. Signed by: Mansi Vuong, 05/07/2016 and 2239. copies to: Denis Escobedo MD, Matthew F MD May 07, 2016 19:39 KITTY BORRERO May 07, 2016 20:06
[2016-05-07 19:41] LABS: BASOPHILS % (AUTO) 0.2 % (0-3); EOSINOPHILS % (AUTO) 1.7 % (0-5); MONOCYTES % (AUTO) 7.6 % (4-12); Mean Corpuscular Hemoglobin 28.5 pg (27.0-35.0); Mean Corpuscular Volume 87.3 fL (81-100); NEUTROPHILS % (AUTO) 66.1 % (40-74); Platelet Count 270 bil/L (150-400)
[2016-05-07 19:51] LABS: INR 0.91 ratio
[2016-05-07 19:56] LABS: Magnesium 1.9 mg/dL (1.6-2.6)
[2016-05-07] MEDS ORDERED: Ondansetron 2 mg/mL 2 mL Inj IVPUSH ONE (20:10)
--- NOTE | 2016-05-07 20:13 | DRSVH ---
PROCEDURE: X-RAY CHEST ONE VIEW, PORTABLE ([id number]) INDICATIONS: fever TECHNIQUE: One view of the chest was acquired. COMPARISON: None. FINDINGS: Surgical changes and devices: There is a right PICC, the tip of which is in the SVC. Lungs and pleura: Mild streaky opacities are present at the left lung base. The lungs are otherwise c lear. Mediastinum: Mediastinal contours appear normal. Heart size is normal. Bones and chest wall: No suspicious bony lesions. Overlying soft tissues appear unremarkable. IMPRESSION: Mild left basilar radiopacities. Differential considerations include atelectasis, aspirat ion, and infection. Dictated by: Brittni Lau M.D. on 05/07/2016 at 20:11 Approved by: Brittni Lau M.D. on 05/07/2016 at 20:12
[2016-05-07] MEDS: HYDROmorphone 1 mg/mL Inj IVPUSH PRN ×2 (20:27→22:40)
[2016-05-07 21:17] VITALS: BP 157/93; PULSE 87; RESP 14; O2SAT 97
[2016-05-07] MEDS ORDERED: CIPR-198 PO (21:18)
[2016-05-07] MEDS ORDERED: ACIDOPHILUS PROB1 M1 PO (21:18)
--- NOTE | 2016-05-07 21:20 | DRSVH ---
PROCEDURE: MRI THORACIC SPINE WITH AND WITHOUT CONTRAST ([id number]) INDICATIONS: inc wbc + esr on ABX for T11-T12 discitis TECHNIQUE: Noncontrast sagittal T1 spin echo and T2 fast spin echo, sagittal STIR, axial T1 and T2 fast spin ech o through the thoracic spine. After the administration of contrast, axial and sagittal T1 spin echo with fat saturation through the thoracic spine. COMPARISON: [facility], MR, MR THORACIC SPINE W&WO CON, 03/16/2016, 15:33. [facility], MR, MR THORACIC SPINE W&WO CON, 04/16/2016, 9:55. FINDINGS: Image quality: Excellent. Similar to the MRI of the thoracic spine dated 04/16/12, severe wedge compression deformities are pres ent at the inferior T10 and the superior T11 endplates. There is increased collapse of the T10 verteb ral body when compared with the MRI of the thoracic spine dated 03/16/16. There is diffuse marrow eugenia ma throughout these vertebral bodies. As before, there is homogeneous marrow enhancement throughout t he T10 and T11 vertebral bodies. Enhancement extends into the right transverse processes and the left pedicles. Fluid is present within the collapsed intervertebral disc space which demonstrates increas ed T2 signal, but no enhancement. Focal kyphotic deformity is redemonstrated. There is narrowing of t he canal, moderate to severe in degree. There is mild deformity of the cord without cord signal abnor mality. As before, there is marked thickening and enhancement of the surrounding paraspinous soft tis sues. There are no discrete hypointense foci to suggest new soft tissue abscess. No other canal stenosis or foraminal narrowing. No other wedge compression deformities. No pleural effusion. Visualized portions of the mediastinum are unremarkable. Visualized portions of the kidneys and upper abdomen are unremarkable. IMPRESSION: 1. T10/T11 osteomyelitis/discitis similar in appearance to the study dated 04/16/16. 2. Unchanged mild cord deformity without cord signal abnormality. Dictated by: Brittni Lau M.D. on 05/07/2016 at 21:08 Approved by: Brittni Lau M.D. on 05/07/2016 at 21:18
[2016-05-07] MEDS ORDERED: Cefotetan Inj 2,000 MG in IV Premix 1 EACH IV ONE (21:50)
[2016-05-07 22:20] LABS: APPEARANCE,URINE CLEAR (CLEAR,HAZY); COLOR,URINE YELLOW (YELLOW); OCCULT BLOOD,URINE SMALL (NEGATIVE); UROBILINOGEN,URINE NORMAL (NORMAL)
[2016-05-07] MEDS ORDERED: 0.9% Sodium Chloride 1,000 ML IV SCH (22:39)
[2016-05-07] MEDS ORDERED: Alum-Mag Hydrox-Simeth 30 mL Suspension PO PRN (22:40)
[2016-05-07] MEDS ORDERED: Polyethylene Glycol (PEG) 17 Gm Powder PO PRN (22:40)
[2016-05-07] MEDS ORDERED: Ondansetron 2 mg/mL 2 mL Inj IVPUSH PRN (22:40)
[2016-05-07 23:19] VITALS: BP 147/93; PULSE 85; RESP 18; O2SAT 96
--- NOTE | 2016-05-07 23:47 | PCM.HPMED ---
Subjective Date of Service May 07, 2016 Primary Provider: Admitting Physician: Don Caldwell MD Primary Care Physician: Other,Physician Attending Physician: Don Caldwell MD Chief Complaint: Worsening back pain History of Present Illness: Cami Salter is a 55 year old female with Hepatitis, Currently on therapy for Diskitis (monitored by Dr Escobedo) and ischemic colitis presenting to [facility] emergency department complaining of sharp 8/10 back pain. Patient reported this back pain is the same chronic back pain she has been having for the last few months. It improved when she was discharged from the hospital on 04/30 but has been worsening in the last few days. Same description as before mostly in the lumbar area with left sided predominance, no radiation, worsening with laying on her left side but improved if the turns on the opposite location. Associated symptoms include heartburn for the past few days and pain in her liver. Denies nausea, vomiting, dysuria, diaphoresis, diarrhea. No urinary or bowel dysfunction noted The pt had an infection diagnosed in January 2016 and is on IV vancomycin bid and oral Cipro. She was sent to the ED today by Dr. Escobedo due to abnormal labs that were drawn yesterday. The pt had labs today showing high WBC and high CRP. Case discussed with Dr Yadav, he spoke to Dr Escobedo who recommended adding Cefotetan IV tonight and admitted patient. Review of Systems: Pertinent positives as noted in HPI. All other systems were reviewed and are negative Allergies Coded Allergies: acetaminophen (Verified Adverse Reaction, Intermediate, HEADACHE, 05/07/16) pt reports taking Percocet regularly without problems citalopram (Verified Adverse Reaction, Intermediate, HALLUCINATE, 05/07/16) hydrocodone (Verified Adverse Reaction, Intermediate, HEADACHE, 05/07/16) hydromorphone (Verified Adverse Reaction, Intermediate, ACTS WEIRD, ) paroxetine (Verified Adverse Reaction, Intermediate, ACTS WEIRD, 05/07/16) sertraline (Verified Adverse Reaction, Intermediate, HALLUCINATIONS, ) Uncoded Allergies: surgical roque (Allergy, Unknown, 05/07/16) Home Medications From Discharge Summary Carvedilol (Carvedilol) 12.5 Mg Tablet 12.5 MG PO BID (Reported) Ciprofloxacin (Ciprofloxacin) 750 Mg Tablet 750 MG PO BID Prescribed by: SUKHWINDER CALABRESE, DO Vancomycin HCl/D5w (Vancomycin-D5w 1.25 G/250 ml) 1.25 Gm/250 Ml Plast..bag 1.25 GM IV BID Prescribed by: SUKHWINDER CALABRESE DO As needed Albuterol Sulfate (Ventolin HFA Inhaler) 200 Puff/18 Gm Inhaler INHALATION PRN For Shortness of Breath (Reported) Alprazolam (Alprazolam) 0.5 Mg Tablet 0.5 MG PO TID PRN PRN For Anxiety ( Reported) Calcium Carbonate (Tums) 500 Mg Tab.chew 1,000 MG PO DAILY PRN PRN For Dyspepsia or Heartburn (Reported) oxyCODONE-Acetaminophen 10-325 mg (oxyCODONE-Acetaminophen 10-325 mg) 1 Each Tablet 1 TAB PO Q6H PRN PRN For Pain (Reported) PMH Hepatitis C Chronic back pain Ischemic colitis associated with low blood pressure, told not to use Tylenol or NSAIDs in 2002 Suicidal attempt COPD, GERD, Hypertension Diskitis currently on antibiotic therapy . Surgical History Multiple gynecological surgeries Carpal tunnel b/l Trigger finger b/l Family History diabetes and hypertension Social History Hx Alcohol Use: No Hx Substance Use: Yes (Heroine use 21 years ago.) Hx Tobacco Use: Yes Smoking Status: Current Every Day Smoker Living Arrangement: with Family Exam Vital Signs Vital Sign - Last Date Time Temp Pulse Resp B/P Pulse Ox O2 Delivery O2 Flow Rate FiO2 05/07/16 21:17 87 14 157/93 97 Room Air 05/07/16 18:30 36.6 Exam General: Alert, Oriented X3 NAD Head: Normocephalic, atraumatic Eyes: SOLANGE, EOMI, no scleral Icterus Oropharynx: [place]pp[place] moist oral mucosa Neck: Supple, trachea midline, no adenopathy Chest: Clear to auscultation B/L, mild wheezing and rhonchi on the right Heart: RRR, Normal S1, S2, no murmurs noted Abdomen: Soft, non-tender. Bowel sounds are normoactive. No guarding or rebound. Extremities: No cyanosis, clubbing or edema. PICC line in place, right arm Skin: No acute rashes or lesions noted Neuro: Cranial nerves II-XII intact, no focal findings. Psych: Normal judgement and insight. Lab and Diagnostics Labs Laboratory Tests Test 05/07/16 19:19 05/07/16 21:59 White Blood Count 12.8th/mm3 (3.8-10.1) Red Blood Count 5.02mil/mm3 (3.90-5.20) Hemoglobin 14.3g/dL (12.0-15.6) Hematocrit 43.8% (35.0-46.0) Mean Corpuscular Volume 87.3fL (81-100) Mean Corpuscular Hemoglobin 28.5pg (27.0-35.0) Mean Corpuscular Hemoglobin Concent 32.6% (32.0-37.0) Red Cell Distribution Width 14.0% (12.3-15.4) Platelet Count 270bil/L (150-400) Neutrophils (%) (Auto) 66.1% (40-74) Lymphocytes (%) (Auto) 24.0% (14-46) Monocytes (%) (Auto) 7.6% (4-12) Eosinophils (%) (Auto) 1.7% (0-5) Basophils (%) (Auto) 0.2% (0-3) Prothrombin Time 9.7sec (8.1-12.5) Prothromb Time International Ratio 0.91ratio Sodium Level 139mEq/L (134-144) Potassium Level 4.4mEq/L (3.5-5.2) Chloride Level 102mEq/L (97-108) Carbon Dioxide Level 25mmol/L (18-29) Blood Urea Nitrogen 16mg/dL (6-24) Creatinine 0.79mg/dL (0.57-1.00) Estimat Glomerular Filtration Rate 108mL/min (>59) Glucose Level 89mg/dL (60-99) Lactic Acid Level 1.4mmol/L (0.4-2.0) Calcium Level 9.3mg/dL (8.5-10.1) Magnesium Level 1.9mg/dL (1.6-2.6) Total Bilirubin 0.2mg/dL (0.0-1.2) Aspartate Amino Transf (AST/SGOT) 21U/L (0-50) Alanine Aminotransferase (ALT/SGPT) 15U/L (0-32) Alkaline Phosphatase 122U/L (25-150) Total Protein 8.2g/dL (6.4-8.4) Albumin 4.0g/dL (3.4-5.0) Random Vancomycin Level 2.3ug/mL Rx Urine Color Yellow (YELLOW) Urine Appearance Clear (CLEAR,HAZY) Urine pH 6.0 (5.0-8.0) Urine Specific [place] 1.010 (1.003-1.035) Urine Protein Negativemg/dL (NEG,TRACE) Urine Glucose (UA) Negativemg/dL (NEGATIVE) Urine Ketones Negativemg/dL (NEGATIVE) Urine Occult Blood Small (NEGATIVE) Urine Nitrite Negative (NEGATIVE) Urine Bilirubin Negative (NEGATIVE) Urine Urobilinogen Normalmg/dL (NORMAL) Urine Leukocyte Esterase Trace (NEGATIVE) Urine RBC 0-2/hpf (0-2) Urine WBC 6-10/hpf (0-5) Urine Epithelial Cells Many/hpf (NONE-MOD) Urine Crystals None seen (NONE SEEN) Urine Bacteria Moderate/hpf (NONE-FEW) Urine Hyaline Casts None/lpf (NONE) Urine Granular Casts None seen (NONE SEEN) Urine Waxy Casts None seen (NONE SEEN) Urine Red Blood Cell Casts None seen (NONE SEEN) Urine White Blood Cell Casts None seen (NONE SEEN) Urine Mucus None seen (None Seen) Urine Trichomonas None seen (NONE SEEN) Urine Yeast None (NONE SEEN) Urinalysis Comment None Urine Culture Reflexed Indicated Microbiology 05/07/16 Blood Culture, Received Pending 05/07/16 Urine Culture, Received Pending Result Diagram: 05/07/16191805/07/161918 X-Rays, CTs and MRIs X-RAY CHEST ONE VIEW, PORTABLE 05/07 IMPRESSION: Mild left basilar radiopacities. Differential considerations include atelectasis, aspiration, and infection Dictated by: Brittni Lau M.D. on 05/07/2016 at 20:11 Approved by: Brittni Lau M.D. on 05/07/2016 at 20:12 MRI THORACIC SPINE WITH AND WITHOUT CONTRAST 05/07 IMPRESSION: 1. T10/T11 osteomyelitis/discitis similar in appearance to the study dated . 2. Unchanged mild cord deformity without cord signal abnormality. Dictated by: Brittni Lau M.D. on 05/07/2016 at 21:08 Approved by: Brittni Lau M.D. on 05/07/2016 at 21:18 Assessment & Plan 55 year old female with h/o Hepatitis C and IVDA presenting to [facility] with back pain associated with discitis at T10-11 and associated osteomyelitis. Send by Dr Escobedo due to worsening back pain as well as Leukocytosis on outpatient labs 1. Discitis, T10-11, chronic, present on admission. Under therapy Repeat MRI imaging showed no new changes no explain her persistent back pain - repeat Blood cultures pending, attempting to get blood cultures from PICC line to determine line infection - continue IV Vancomycin 1.25 g q12h, monitor Vanco trough - switching Cipro to IV Cefotetan IV - Dr Escobedo will follow in the morning with further recommendations 2. Acute on Chronic back pain, present on admission - Percocet 10/325 mg PO q6h prn - consider muscle relaxants or NSAIDS 3. Acute Leukocytosis. Present on admission Etiology unclear, could be stress. No New signs of infections with Urinalysis unremarkable and PICC line infection a possibility - repeat Blood cultures - Dr Escobedo to address any changes to current antibiotics regimen 4. Hypertension, chronic, stable Expect some elevation due to pain issue - continue Coreg 12.5 mg bid 5. Anxiety, chronic, presumed stable - Alprazolam 0.5 tid - Acetaminophen as needed for mild pain/fever/headache - Bowel regimen as needed - Antiemetic as needed Patient admitted under inpatient status with expected length of stay > 2 midnights for severity of present symptoms, complexities of treatment plan and risk for adverse event . Resuscitation Status: CPR: Attempt Resuscitation Don Caldwell MD May 07, 2016 22:52
--- NOTE | 2016-05-08 01:54 | NUR ---
Admit Pt arrived to [facility] room 242-2 at 2305 via WC. Pt easily transferred to bed w/o any assistance, no strength deficits. Pt A&Ox3 and appears to be an otherwise healthy normal lady, friendly and responsive. Pt oriented to room and call light for safety, patient knows to call for needs.
[2016-05-08 05:09] VITALS: BP 126/81; PULSE 89; RESP 17; O2SAT 92
[2016-05-08] MEDS: ALPRAZolam 0.5 mg Tablet PO PRN ×2 (05:37→20:29)
[2016-05-08] MEDS: oxyCODONE-Acetamin 10-325 mg Tablet PO PRN ×4 (05:37→20:29)
[2016-05-08 08:00] VITALS: BP 128/81; PULSE 85; RESP 18; O2SAT 94
--- NOTE | 2016-05-08 08:47 | NUR ---
Social Work: Screening Data: Pt is a 55 y/o female admitted for discitis T10-T11. Pt's PCP is not listed, pt's insurance is [employer] blind/disable with [facility] Medicaid secondary. Readmit score not listed. EMR reviewed. Per previous visit, pt went home with [facility] for IVABX at home. AUTO DRIVER will follow for possible d/c planning needs. Assessment: Pt who is independent at baseline. Plan: Pt will likely d/c home via POV when medically stable. AUTO DRIVER will follow for possible d/c planning needs. REA Zapata
[2016-05-08] MEDS ORDERED: 0.9% Sodium Chloride 100 ML ONE (10:11)
[2016-05-08] MEDS: DAPTOmycin Inj 500 MG in 0.9% Sodium Chloride 50 ML IV SCH (10:22)
--- NOTE | 2016-05-08 11:38 | CONS ---
[address] [address] CONSULTATION REPORT PATIENT: JASMINE VILLAR : 1960 MR#: [id number] ADMIT: 05/07/2016 JOB ID: [id number] DATE OF SERVICE: 05/08/2016 REQUESTING PHYSICIAN: I thank Dr. Ayaan Yadav for this consult. REASON FOR CONSULTATION: Leukocytosis and elevated CRP in a patient receiving intravenous antibiotics through a PICC line for thoracic diskitis. HISTORY OF THE PRESENT ILLNESS: The patient is a 55-year-old woman well known to me from a couple recent admissions and who I am currently following for ongoing treatment of a thoracic spine presumptive infection. Recall that this is a 55-year-old woman who originally presented to [facility] in the fall with back pain and constipation. An MRI scan showed lower thoracic diskitis with adjacent vertebral osteo, and she was admitted to [facility]. A biopsy of the disk was done, but the culture was negative. While this workup was ongoing, the patient signed out AMA. She then turned up at our hospital in March with similar complaints of back pain but no longer had constipation. Repeat MRI then showed there was continued diskitis in the lower thoracic spine, as well as some vertebral body involvement. Because of great concerns about inadequately treated infection, we repeated a biopsy in March and sent it for cultures as well as PCR studies. In addition, I checked Brucella antibodies and QuantiFERON Gold, and all of these studies turned out to be negative. Again, while we were considering what to do here at [facility], the patient signed out AMA. She then came to my clinic a couple weeks later wondering what to do about her persistent back pain. After we reviewed all the negative cultures and studies from her prior biopsies at [facility] and [facility], we decided to observe her for a bit, as her CRP and sed rate were normal. Unfortunately, the patient's pain continued to worsen, and after a long discussion with neuroradiology, I felt there was no other option but to put her on aggressive therapy because of the possibility of an untreated spine infection. We decided to use IV vancomycin and oral Cipro, and the patient was discharged two weeks or so ago on these. The patient was discharged on or about April 18 to continue the vancomycin for six weeks and the oral Cipro for the same timeframe. We knew this was going to be a tough case because the CRP and sed rate were basically normal on April 18 when we started the antibiotics, but it seemed that our hand was forced because of the persistent pain and perhaps some subtle worsening on the MRI scan which the radiologist read as most likely infection with a small chance that it was trauma. Also, recall the patient had no history of fall or trauma to the area. During her almost three weeks at home with the IV vancomycin and oral Cipro, the patient seemed to get a little bit better with respect to her back pain until this May 05 when she started to feel "crappy." This feeling of crappies consisted of malaise, pain in her right upper quadrant, severe reflux symptoms, and increase in her thoracic back pain. There was no associated fevers, chills, sweats, sore throat, cough, chest pain, nausea, vomiting, diarrhea, or genitourinary symptoms. On May 06, the regular weekly blood draw was done by the infusion company. They called me yesterday, May 07, to report that her white count had skyrocketed from normal to 30,000, and her CRP had gone from normal to 10 since the prior week's lab studies. I called the patient and strongly recommended she go directly to the emergency room for admission which happened yesterday evening. I was also on the phone yesterday evening with the ER people regarding what antibiotics to start and which cultures to obtain. There is little else of interest in the history of present illness except the fact the patient's PICC line has been working well for infusions, but there have been some problems drawing from the right upper extremity PICC line. At no point has it been painful, though, according to the patient. PAST MEDICAL HISTORY: 1. Hepatitis C. 2. COPD. 3. Hypertension. 4. History of ischemic colitis. 5. History of IV drug use 20 years ago when she was with Baldemar Luque, but she denies any IV drug use since. 6. GERD. 7. Chronic back pain. 8. Diagnosis in January of thoracic diskitis with associated vertebral osteomyelitis. SOCIAL HISTORY: The patient does smoke cigarettes but does not drink alcohol and says she has not used any IV drugs in 21 years. She adamantly denies the use of meth, though records from the [facility] admission this fall show there was a positive urine for methamphetamine. FAMILY HISTORY: Strongly positive for tuberculosis, but recall that during her admission here in March, we did check a QuantiFERON Gold and that study was negative. REVIEW OF SYSTEMS: Today, the patient tells me she has no headache, no visual complaints. No trouble swallowing. No sores in the mouth. No sore throat. No neck stiffness. Rare cough without sputum production which is her baseline. No shortness of breath. No chest pain. No nausea, vomiting, or diarrhea, though she does have some reflux. No urgency, frequency, or dysuria. No swelling of the joints. No weakness in her legs. PHYSICAL EXAMINATION: Reveals an afebrile woman, temperature 37, and she has been afebrile since admission. Note that she was also afebrile throughout her admission in March. Pulse 89, respiratory rate 17, blood pressure 126/81. She is saturating well on room air and appears completely comfortable lying on her right side in the bed. She is alert and oriented x3. She has no trauma to the head. Eyes without conjunctivitis. Oral cavity without thrush or hairy leukoplakia. Neck is quite supple. Right upper extremity PICC line appears entirely benign. The lungs are notable for a few wheezes near the bases but otherwise unimpressive. Cardiac tones without murmur. The patient's abdomen is notable for some very minimal tenderness in the right upper quadrant in the gallbladder area, but I cannot palpate the liver or gallbladder there and requires a lot of pressure to produce this minimal amount of pain. She does not have splenomegaly. There are no other masses or evidence of ascites. She does not have a Bermudez catheter. The extremities are without edema or cellulitis. The legs are quite strong, and the patient has no focal motor defects whatsoever. No skin rashes noted, either. LABORATORIES: Include white count now 12,800. Note that it was reported to be 30,000 by the [facility] on Friday. The diff on the white count is entirely normal. Creatinine is 0.79. LFTs are normal. Procalcitonin is 5, and in a blood draw three weeks ago, her procalcitonin was basically 0, so this is a dramatic increase suggesting bacterial infection. Urinalysis with 6-10 white cells. It is normal for a woman her age. A random drug screen done April 18 was negative, and I have asked for a repeat today. Also note back in March we had a negative QuantiFERON Gold, negative Brucella antibodies, and negative HIV. Complete review of the micro going back to March admission shows we have many, many negative blood cultures. We have cultures of the needle aspirate that we did here of the spine which are negative, including AFB. We have negative cultures and PCR studies for AFB and fungi. From yesterday in the ER, we have pending blood cultures and urine culture. IMAGING: Done yesterday includes a chest x-ray, which shows left basilar atelectasis. The thoracic spine MRI was obtained yesterday in the ER, and compared to the one done on April 16, it shows wedge deformities at the inferior T10 and superior T11 endplates. There is increased collapse of the T10 vertebral body when compared to the study done back in March but not compared to the study done in early April. There is some marrow enhancement of both the T10 and T11 vertebral bodies. There is some fluid present in the collapsed disk space without much enhancement. There is some thickening enhancement of the surrounding paraspinous tissues. Overall, the radiologist concluded that there is T10-11 osteomyelitis with diskitis which is similar in appearance to that seen on the April 16 MRI scan and a little bit worse than what was seen in early March on another MRI scan. No significant involvement of the cord is noted. IMPRESSION: This is a vexing case of a woman who presented back in January to [facility] and appeared to have a T10-11 spine infection starting at the disk. Appropriate cultures, including needle biopsy, were done there, and the patient left against medical advice before any conclusion was made. She then was admitted to our hospital in early March with essentially the exact same complaint. An MRI scan looks similar to one done at [facility], and we again did a needle biopsy with cultures for AFB, fungi, and bacteria, as well as PCRs is for all those possible organisms that was entirely negative. The patient again signed out against medical advice. She returned to clinic in late March which led to an additional evaluation which included a normal CRP and sed rate values. We again got an MRI scan April 16 which looked similar to the ones done in January and March, though perhaps a bit worse. At that point, I felt that our hand had been forced, and I went ahead and started the patient on vancomycin and ciprofloxacin to cover the likely suspects, though we had no microbiologic confirmation of the cause of this process. The patient did well for two weeks at home until this past Friday when she developed right upper quadrant pain and increasing back pain. This was associated with a dramatic increase in her white count which had been normal to 30,000 and an increase in her CRP which had been normal to over 10. On that basis, she was readmitted last night, and we now look for the cause of this inflammatory process which has also elevated her procalcitonin. Using these cases, the most likely suspect is an infection of the peripherally inserted central catheter line, but hers appears fairly benign. The fact it has not been able to be used for blood drawing, though, suggests that there could be something amiss, and so we have blood cultures pending through the peripherally inserted central catheter line. Also of concern is the right upper quadrant pain. Her LFTs are entirely normal, though, and the pain is very minimal, but I still think it is possible that she has cholecystitis. RECOMMENDATIONS: 1. We await the blood cultures that were drawn last night through the PICC and through the skin. 2. Right upper quadrant ultrasound will be ordered. 3. Repeat CRP will be done. 4. Urine tox screen will be ordered. 5. Would go ahead and modify her antibiotics a bit to include daptomycin IV, as well as continued oral Cipro. 6. If there is any reason to suspect that the PICC line is the cause of this process, we will of course remove it. 7. I will continue to follow this patient very closely.
[2016-05-08 12:00] VITALS: BP 135/82; PULSE 74; RESP 18; O2SAT 92
--- NOTE | 2016-05-08 12:47 | NUR ---
ABT/Nutrition Seen and examined by Dr. Escobedo this morning. Daptomycin IV started and oral Ciprofloxacin started. Will monitor for any ASE. Patient refusing to eat despite of encouragement, stated she wasn't hungry. Fluids offered and accepting it.
--- NOTE | 2016-05-08 12:56 | DRSVH ---
PROCEDURE: US ABDOMEN INDICATIONS: ? chetna or liver path TECHNIQUE: Real-time scanning was performed of the abdominal and retroperitoneal organs, with image documentatio n. COMPARISON: None. FINDINGS: Liver length: 14.78 cm Gallbladder Wall Thickness: 2.30 mm CHD: 4.40 mm CBD: 7.20 mm Spleen length: 9.94 cm Right kidney length: 10.07 cm Left kidney length: 10.61 cm Aorta(Proximal): Not well-seen. Aorta(Mid): 1.86 cm Aorta(Distal): 1.65 cm RCIA: 1.04 cm LCIA: 8.20 mm Liver: Liver is diffusely increased in echogenicity. No focal hepatic abnormalities identified. No rmal hepatic size. Gallbladder: Normal gallbladder. Biliary ducts: Intrahepatic bile ducts are non-dilated. Extrahepatic bile duct caliber is normal. Normal is 6-7 mm or less in diameter, or 10 mm or less post-cholecystectomy. Pancreas: Visualized portions of the pancreas are sonographically normal. Spleen: Spleen is normal in size and homogeneous in echotexture. Kidneys: Kidneys are normal in size and echotexture. No hydronephrosis or nephrolithiasis. No ankur d masses. Aorta: Visualized aorta is normal in caliber at less than 3 cm. Iliacs: Proximal common iliac arteries are normal in caliber at less than 2.5 cm. IVC: Intrahepatic inferior vena cava is patent. Miscellaneous: No free abdominal fluid. IMPRESSION: Increased hepatic echogenicity noted likely related to fatty infiltration of the liver b ut other hepatocellular disease cannot be excluded. Recommend clinical correlation. Dictated by: Victoriano REY Interpreted: Kalee Valdes MD on 05/08/2016 at 12:54 Transcribed by: ANTONIO on 05/08/2016 at 12:55 Approved by: Kalee Valdes M.D. on 05/08/2016 at 17:41
--- NOTE | 2016-05-08 14:38 | PCM.PNMED ---
Subjective Date of Service May 08, 2016 Subjective reports continued low back pain and right lateral chest/right upper abdominal pain (under the right ribs) Exam Vital Signs Vital Sign - Last Date Time Temp Pulse Resp B/P Pulse Ox O2 Delivery O2 Flow Rate FiO2 05/08/16 12:00 37.0 74 18 135/82 92 Room Air Intake and Output 05/07/16 05/07/16 05/08/16 Cumulative From/Thru 15:00 23:00 07:00 05/07/16 18:30 - 05/08/16 06:17 Intake Total 0 ml 0 ml Output Total 0 ml 0 ml Balance 0 ml 0 ml Intake Oral 0 ml 0 ml Output Urine Total 0 ml 0 ml Exam General: Alert, Oriented X3 NAD Head: Normocephalic, atraumatic Eyes: no scleral Icterus Oropharynx: [place] moist oral mucosa Neck: Supple, full ROM Chest: Clear to auscultation B/L Heart: RRR Abdomen: Soft, non-tender. Bowel sounds are normoactive. No guarding or rebound. Extremities: No cyanosis, clubbing or edema. PICC line in place, right arm Skin: No acute rashes or lesions noted Neuro: Cranial nerves II-XII intact, no focal findings. Psych: Normal judgement and insight. IVs and Medications Medications Reviewed: Medications were reviewed in detail Lab and Diagnostics Result Diagram: 05/07/16191805/07/161918 X-Rays, CTs and MRIs X-RAY CHEST ONE VIEW, PORTABLE 05/07 IMPRESSION: Mild left basilar radiopacities. Differential considerations include atelectasis, aspiration, and infection Dictated by: Brittni Lau M.D. on 05/07/2016 at 20:11 Approved by: Brittni Lau M.D. on 05/07/2016 at 20:12 MRI THORACIC SPINE WITH AND WITHOUT CONTRAST 05/07 IMPRESSION: 1. T10/T11 osteomyelitis/discitis similar in appearance to the study dated 1/03/ 17. 2. Unchanged mild cord deformity without cord signal abnormality. Dictated by: Brittni Lau M.D. on 05/07/2016 at 21:08 Approved by: Brittni Lau M.D. on 05/07/2016 at 21:18 Assessment & Plan 55 year old female with h/o Hepatitis C and IVDA presenting to [facility] with back pain associated with discitis at T10-11 and associated osteomyelitis. presenting with worsening back pain as well as Leukocytosis on outpatient labs # Possible acute on chronic Discitis, T10-11, present on admission. Under therapy - Repeat MRI imaging showed no new changes - appreciate ID consult will f/u w/ recs - Daptomycin IV, as well as continued oral Cipro per ID recs - f/u pending cultures # Acute on Chronic back pain, present on admission - Percocet 10/325 mg PO q6h prn - consider muscle relaxants or NSAIDS - further treatment of discitis as noted above # Acute Leukocytosis. Present on admission - further workup and treatment as noted above - f/u # Hypertension, chronic, stable - continue Coreg 12.5 mg bid # Anxiety, chronic, presumed stable - Alprazolam 0.5 tid Dispo: 2-3 days pending above workup Resuscitation Status: CPR: Attempt Resuscitation Gurdeep Jarrett May 08, 2016 14:38
[2016-05-08] MEDS ORDERED: Sodium Chloride LOK Flush 10 mL Syringe IVFLUSH PRN ×2 (15:20)
[2016-05-08 16:52] VITALS: BP 148/88; PULSE 80; RESP 18; O2SAT 94
[2016-05-08 20:12] VITALS: BP 156/98; PULSE 90; RESP 17; O2SAT 94
[2016-05-09] MEDS: oxyCODONE-Acetamin 10-325 mg Tablet PO PRN ×4 (04:04→21:01)
[2016-05-09 05:11] VITALS: BP 98/66; PULSE 87; RESP 16; O2SAT 97
--- NOTE | 2016-05-09 06:07 | NUR ---
Shift Note Assumed pt care at 1900, back pain managed with PRN Percocet, so far pt has not complained of breakthrough pains, reinforced visiting hours policy,q1 checks done throughout night.
[2016-05-09 08:50] VITALS: BP 118/75; PULSE 86; RESP 16; O2SAT 93
[2016-05-09] MEDS: DAPTOmycin Inj 500 MG in 0.9% Sodium Chloride 50 ML IV SCH (09:04)
[2016-05-09] MEDS: ALPRAZolam 0.5 mg Tablet PO PRN ×3 (09:24→21:01)
--- NOTE | 2016-05-09 11:44 | PROG NOTE ---
[address] [address] PROGRESS NOTE PATIENT: JASMINE VILLAR : 1960 MR#: [id number] ADMIT: 05/07/2016 JOB ID: [id number] DATE: 05/09/2016 INFECTIOUS DISEASE FOLLOWUP NOTE: REASON FOR FOLLOWUP: Thoracic diskitis with associated vertebral osteo, complicated by leukocytosis and elevated inflammatory markers while receiving outpatient IV antibiotics. INTERVAL HISTORY: Since her readmission, the patient reports that she has had no additional fevers or chills. She continues to have a great deal of lower back pain and also notes that her PICC line is slow to infuse and they cannot draw from it. The PICC line itself, however, is not painful, and there are no fever or chills when it is used in an attempt to infuse antibiotics. She has no pulmonary or GI symptoms except for some very mild right upper quadrant pain. PHYSICAL EXAMINATION: Reveals an afebrile woman. Temp 36.9, pulse 86, respiratory rate 16, blood pressure 118/75. She is saturating well on room air. Oral cavity negative. Mental status normal. Lungs clear. Abdomen with some very minimal right upper quadrant tenderness but no masses noted in that area. The back is swing tender over the lower thoracic area. No new white count since the one done two days ago when it was 12,800. We do have the CRP from yesterday which is 1. Recall that her CRP had jumped dramatically as an outpatient while she was receiving vancomycin and Cipro. Procalcitonin on admission was 5.02. Urine white cells unremarkable. Urine tox screen was positive for opiates, as well as amphetamines, in this patient who adamantly denies the use of any illicit drugs. Blood cultures done on readmission the 24th in the evening are negative so far. Urine culture likewise negative. The right upper quadrant ultrasound I ordered yesterday to evaluate the right upper quadrant just shows some fatty liver. The thoracic MRI scan shows continued diskitis with osteo as before. IMPRESSION: This case continues to become more confusing. We had a patient with culture-negative thoracic diskitis with associated vertebral changes. Two separate needle biopsies with cultures and PCR were negative, and we decided to empirically treat the patient as an outpatient with IV vancomycin and Cipro for this presumably infectious process. Unfortunately, while the patient was receiving IV antibiotics at home, she developed fever, as well as a dramatic jump in her white count and CRP, which were unexplained and for that reason, she was readmitted. So far, we have no explanation for the rising white count and CRP, and fever. We do have evidence, however, that the peripherally inserted central catheter line has become dysfunctional even though it looks fine. I think that may be the culprit here. I am also concerned in that her urine tox screen is positive for amphetamines. This patient continues to adamantly deny the use of amphetamines but it is worth noting that when she was hospitalized in [facility] in January for the same problem, her urine was also positive for amphetamines and when she was confronted about it she denied it and then signed out AMA. I wonder if additional IV therapy is really in her best interest. RECOMMENDATIONS: 1. We await additional maturation of the blood cultures. 2. I am going to ask the PICC team to see if they can get that PICC line to work but if not, we should just remove it and use peripheral IVs. 3. Repeat CRP, procalcitonin and white count should be done tomorrow morning, and I have ordered those. 4. Final decision on disposition will likely be made tomorrow.
[2016-05-09] MEDS ORDERED: Alteplase (Cathflo) 1 mg/mL 2 mL Inj IVPUSH ONE ×2 (14:05→18:15)
--- NOTE | 2016-05-09 15:00 | PCM.PNMED ---
Subjective Date of Service May 09, 2016 Subjective reports continued low back pain and right lateral chest/right upper abdominal pain (under the right ribs) Exam Vital Signs Vital Sign - Last Date Time Temp Pulse Resp B/P Pulse Ox O2 Delivery O2 Flow Rate FiO2 05/09/16 08:50 36.9 86 16 118/75 93 Room Air Intake and Output 05/08/16 05/08/16 05/09/16 Cumulative From/Thru 15:00 23:00 07:00 05/07/16 18:30 - 05/09/16 05:11 Intake Total 200 ml 518 ml 718 ml Output Total 0 ml 0 ml Balance 200 ml 518 ml 718 ml Intake Oral 200 ml 518 ml 718 ml Output Urine Total 0 ml 0 ml # Voids 3 3 Exam General: Alert, Oriented x 3 NAD Head: Normocephalic, atraumatic Eyes: no scleral Icterus Oropharynx: [place] moist oral mucosa Neck: Supple, full ROM Chest: Clear to auscultation B/L Heart: RRR Abdomen: Soft, non-tender. Bowel sounds are normoactive. No guarding or rebound. Extremities: No cyanosis, clubbing or edema. PICC line in place, right arm Skin: No acute rashes or lesions noted Neuro: Cranial nerves II-XII intact, no focal findings. Psych: Normal judgement and insight. IVs and Medications Medications Reviewed: Medications were reviewed in detail Lab and Diagnostics Result Diagram: 05/07/16191805/07/161918 X-Rays, CTs and MRIs X-RAY CHEST ONE VIEW, PORTABLE 05/07 IMPRESSION: Mild left basilar radiopacities. Differential considerations include atelectasis, aspiration, and infection Dictated by: Brittni Lau M.D. on 05/07/2016 at 20:11 Approved by: Brittni Lau M.D. on 05/07/2016 at 20:12 MRI THORACIC SPINE WITH AND WITHOUT CONTRAST 05/07 IMPRESSION: 1. T10/T11 osteomyelitis/discitis similar in appearance to the study dated . 2. Unchanged mild cord deformity without cord signal abnormality. Dictated by: Brittni Lau M.D. on 05/07/2016 at 21:08 Approved by: Brittni Lau M.D. on 05/07/2016 at 21:18 Assessment & Plan 55 year old female with h/o Hepatitis C and IVDA presenting to [facility] with back pain associated with discitis at T10-11 and associated osteomyelitis. presenting with worsening back pain as well as Leukocytosis on outpatient labs # Possible acute on chronic Discitis, T10-11, present on admission. Under therapy - Repeat MRI imaging showed no new changes - appreciate ID consult will f/u w/ recs - Daptomycin IV, as well as continued oral Cipro per ID recs - f/u pending cultures # Report of right lower rib/right upper abd pain. - Abd U/S 05/08: "Increased hepatic echogenicity noted likely related to fatty infiltration of the liver" # Acute on Chronic back pain, present on admission - Percocet 10/325 mg PO q6h prn - consider muscle relaxants or NSAIDS - further treatment of discitis as noted above # Acute Leukocytosis. Present on admission - further workup and treatment as noted above - f/u # Hypertension, chronic, stable - continue Coreg 12.5 mg bid # Anxiety, chronic, presumed stable - Alprazolam 0.5 tid Dispo: 1-2 days pending above workup Resuscitation Status: CPR: Attempt Resuscitation Time spent 25 min Gurdeep Jarrett May 09, 2016 15:00
[2016-05-09 16:00] VITALS: BP_SYST 112; BP_SYST 184; BP_DIAS 76; BP_DIAS 92; PULSE 81; PULSE 92; RESP 18; RESP 22; O2SAT 94
--- NOTE | 2016-05-09 17:18 | NUR ---
Pain/Family Concern/PICC Patient very pleasant and more alert and energetic today, still in pain and managed with Percocet, given twice this shift with positive outcome. Patient refuses breakfast and lunch but snacking and drinking liberal amount of fluids otherwise. Ate 75% of dinner. Son called and requested to be contacted by Dr. Escobedo if possible, will try to communicate this message. PICC line managed by IV Therapy team. Still on IV antibiotic, no A/E noted. Will continue to monitor.
[2016-05-09 19:33] VITALS: BP 112/72; PULSE 79; RESP 17; O2SAT 94
[2016-05-10] MEDS: oxyCODONE-Acetamin 10-325 mg Tablet PO PRN ×2 (02:17→08:17)
[2016-05-10] MEDS: ALPRAZolam 0.5 mg Tablet PO PRN ×2 (02:17→11:46)
[2016-05-10 02:39] LABS: BASOPHILS % (AUTO) 0.6 % (0-3); EOSINOPHILS % (AUTO) 2.1 % (0-5); Mean Corpuscular Hemoglobin 28.9 pg (27.0-35.0); Mean Corpuscular Volume 85.1 fL (81-100); NEUTROPHILS % (AUTO) 51.7 % (40-74); Platelet Count 285 bil/L (150-400)
[2016-05-10 04:12] VITALS: BP 119/74; PULSE 87; RESP 18; O2SAT 99
--- NOTE | 2016-05-10 05:14 | NUR ---
Shift Note Assumed pt care at 1900, at 1999 IV therapy in to check patency of PICC post 1st dose of Cathflo, PICC noted patent with good blood flow, at 0000 pt stated wanting to Leave AMA, despite information given on risks, Dr. Caldwell aware, @0300, pt states changing her mind at this time, pt in her room as of this time.
[2016-05-10 08:24] VITALS: BP 147/93; PULSE 70; RESP 18
[2016-05-10] MEDS ORDERED: Dalbavancin Inj 1,500 MG in Dextrose 5% 500 ML IV ONE (08:45)
--- NOTE | 2016-05-10 08:59 | PROG NOTE ---
[address] [address] PROGRESS NOTE PATIENT: JASMINE VILLAR : 1960 MR#: [id number] ADMIT: 05/07/2016 JOB ID: [id number] DATE: 05/10/2016 INFECTIOUS DISEASE FOLLOWUP NOTE: REASON FOR FOLLOW UP: Spine infection with diskitis and vertebral osteo. INTERVAL HISTORY: I was called early this morning, as the nurse reported the patient wants to leave AMA. The patient tells me she has no fevers, chills, or sweats. She does have a bit of a dry cough, which seems to be new but she is not significantly short of breath. She has no additional GI symptoms at all. She does note her back pain is steadily worse which she attributes to lying in bed, and a complete absence of sleep. She is in the MOC unit with a roommate and she said the constant action with the roommate keeps her awake all night and this lack of sleep and being in the hospital and unable to walk around as she would at home has caused her back pain to increase exponentially and she is not being given enough pain meds. As was noted previously, the patient continues to deny the use of methamphetamine which may be relevant for our discharge plans. PHYSICAL EXAMINATION: Reveals a somewhat unhappy but otherwise stable appearing patient in no acute distress. She has been afebrile since her readmission on the evening of May 07. Pulse 87, respiratory rate 18, blood pressure 119/74. She is saturating well on room air at 99%, in fact, on room air. Head without any notable abnormalities. Oral cavity negative. Lungs are notable for some wheezing bilaterally. Cardiac tones without change. No new murmur. The abdomen is soft and nontender. There is no longer any right upper quadrant tenderness. There is still pain over the lower thoracic spine. The patient's strength in the lower extremities is excellent. Her PICC line in the right upper extremity was not working well when she came in, but it has been flushed with tPA and is now working fine, and I have asked the nurses to draw some blood cultures through it. LABORATORIES: Include white count which was 12,800 when she came in. It was 10,000 this morning with a completely normal diff. Creatinine is 0.75. The CRP before she came in, drawn by the [facility] on Friday the , was about 5. When she came in here it was down to 1 already and this morning it is 0.2, so all the way back to normal. A procalcitonin done on admission was 5. I have asked for a repeat this morning but it is pending. Liver function tests have been completely normal. An albumin has been 4. Urinalysis with 6-10 white cells. Urine tox screen was positive for opiates, as well as amphetamines on admission. Blood cultures from the ED on admission drawn through the PICC and the skin are negative. Urine culture likewise negative. IMAGING: Chest x-ray showed mild left basilar radio-opacities consistent with atelectasis or infection. I reviewed this x-ray and was not, in and of itself, too impressive. Thoracic MRI showed T10-T11 osteomyelitis and diskitis which was similar to one done a month ago. An abdominal ultrasound we did shortly after admission because of right upper quadrant pain was basically normal. IMPRESSION: This remains an extraordinarily difficult case on which I spent at least an hour today and many hours while trying to coordinate her outpatient care. The patient was seen in [facility] back in January with diskitis in her T10-11 area. After a biopsy, which returned negative cultures, the patient signed out AMA. She turned up at our hospital in early March and was readmitted. After a biopsy, which had negative cultures and PCR studies, she signed out AMA. She came to my clinic as an outpatient for continued followup of her back and eventually, after extensive consultation with Neuro and Radiology, we decided we needed to treat her even though we have all negative cultures and very little evidence of inflammation except on the MRI scan. The patient was started a couple weeks ago on vancomycin IV and Cipro orally, and this seemed to be going well at home until she developed an abrupt and dramatic increase in her white count and CRP which was detected on the laboratory studies done on the . This led me to call her and have her readmitted on the night of the . Upon readmission, the patient looked quite nontoxic, and MRI scan of the back did not look a whole lot different. At this point, the patient is already getting much better in terms of her white count and CRP, and we await the procalcitonin but I am nonetheless stuck with the fact it does appear she had a significant bacterial infection, which must have started somewhere about last weekend, associated with a dramatic rise in white count and CRP, and an elevated procalcitonin. The most likely source of this infection I would think is the peripherally inserted central catheter line, which had not been working well right before she came in, in terms of both infusion and drawing, though it has always appeared benign externally. Another separate issue here is the urine sent for methamphetamine. The urine toxicology screen at [facility] was positive for methamphetamine. When the patient was confronted with this she laughed. Urine toxicology screen here was also positive for amphetamines which the patient says she has not used in decades. I am concerned that the patient has a peripherally inserted central catheter line at home and has urine toxicology screens consistently positive at two medical centers at least for amphetamines without an explanation. Overall, I think this patient's interest would best be served without a peripherally inserted central catheter line, as I think this is what is leading us into trouble. The use of dalbavancin for osteomyelitis has been studied on animal models, and there is some limited human data regarding the bioavailability of this new drug in tissue. While this is nonstandard, I think in this patient who signed out of hospitals twice against medical advice and is threatening to sign out against medical advice for a third time this morning, and in whom there has already been dysfunction of the peripherally inserted central catheter line, that this may be indicated. I have explained the idea regarding using dalbavancin to treat osteomyelitis and that this is nonstandard to the patient. I have told her this would free her from a peripherally inserted central catheter line, which I think contributed to this recent readmission and it constitutes a continuing hazard for her, and she accepts this explanation. RECOMMENDATIONS: 1. Will give her 1.5 g of dalbavancin this morning. 2. The patient will return to the [facility] in one week to get a second 1.5 g dose, as outlined in the article by Eddie. 3. The patient will continue with Cipro 750 p.o. b.i.d. for a total of 6 weeks. 4. The patient will return to my clinic May 22. 5. I have asked the nurse to check two blood cultures through the PICC line this morning trying to finally establish whether or not this PICC line is infected. 6. Will go ahead and stop the daptomycin the patient has been receiving here in the hospital, as we are obviously going to be given the dalbavancin this morning. NOTE TO THE HOSPITALIST: I think this patient could be discharged as soon as she receives her dalbavancin and, in fact, she will probably insist on being discharged, and a discharge this morning would, of course, be preferable to her third AMA discharge in the last three months.
--- NOTE | 2016-05-10 11:09 | PCM.DIMED ---
Discharge Instructions Date of Service May 10, 2016 Dates of Hospitalization May 07, 2016 at 20:32 Discharge Diagnosis Discharge Diagnosis # Acute on chronic back pain likely due to underlying chronic Discitis, T10-11, present on admission. Under therapy - MRI imaging showed no new changes # Likely fatty infiltration of the liver # Acute Leukocytes. Present on admission. Resolved # Hypertension, chronic, stable # Anxiety, chronic, presumed stable Diet Low fat, Low Sodium, Heart Healthy Activity No restrictions Call your provider Fever or Chills, Shortness of breath, Bleeding, Chest pain, Excessive diarrhea Patient Instructions Seek immediate medical attention if any new or worsening signs or symptoms occur. Follow-up plan 1. Return to the MOC (at [facility]) in one week to get a second 1.5 g dose of Dalbavancin in outpatient setting 2. Followup with Dr. Escobedo at infectious disease (ID) clinic on May 22, 2016 3. Followup with your primary care provider in 3-7 days Follow-up Provider: Denis Escobedo MD, Masoud May 10, 2016 11:09
--- NOTE | 2016-05-10 12:02 | NUR ---
Discharge PICC DC'd per orders by IV Therapy. PICC dressing site care reviewed with patient. Patient received care notes on osteomyelitis. No new medications prescribed. Current medications and follow up instructions reviewed. Patient left A/Ox3 at 1202 with walker, accompanied by [employer]IDE ESCORT with all personal belongings to be transported home by family.
--- NOTE | 2016-05-10 19:08 | PCM.DC.MED ---
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 Under therapy - MRI imaging showed no new changes # Likely fatty infiltration of the liver # Acute Leukocytes. Present on admission. Resolved # Hypertension, chronic, stable # Anxiety, chronic, presumed stable Consultations 1. ID Procedures XRay, CTs & MRIs X-RAY CHEST ONE VIEW, PORTABLE 05/07 IMPRESSION: Mild left basilar radiopacities. Differential considerations include atelectasis, aspiration, and infection Dictated by: Brittni Lau M.D. on 05/07/2016 at 20:11 Approved by: Brittni Lau M.D. on 05/07/2016 at 20:12 MRI THORACIC SPINE WITH AND WITHOUT CONTRAST 05/07 IMPRESSION: 1. T10/T11 osteomyelitis/discitis similar in appearance to the study dated . 2. Unchanged mild cord deformity without cord signal abnormality. Dictated by: Brittni Lau M.D. on 05/07/2016 at 21:08 Approved by: Brittni Lau M.D. on 05/07/2016 at 21:18 Brief History 55 year old female with h/o Hepatitis C and IVDA presenting to [facility] with back pain associated with discitis at T10-11 and associated osteomyelitis. presenting with worsening back pain as well as Leukocytosis on outpatient labs Hospital Course # Possible acute on chronic Discitis, T10-11, present on admission. Under therapy - Repeat MRI imaging showed no new changes - ID consulted. - Daptomycin IV, as well as continued oral Cipro initially. By day of d/c pt received a dose of Dalbavancin with plan to administer second dose in one week as outpatient - PICC line removed per ID recs - f/u w/ Dr. Escobedo as outpatient # Report of right lower rib/right upper abd pain. - Abd U/S 05/08: "Increased hepatic echogenicity noted likely related to fatty infiltration of the liver" # Acute on Chronic back pain, present on admission - further treatment of discitis as noted above # Acute Leukocytosis. Present on admission. Resolved - further workup and treatment as noted above # Hypertension, chronic, stable - continue Coreg 12.5 mg bid # Anxiety, chronic, stable by day of d/c lungs CTA bilat. abd soft, nt, nd, +bs Exam Vital Signs (Last) Date Time Temp Pulse Resp B/P Pulse Ox O2 Delivery O2 Flow Rate FiO2 05/10/16 08:24 36.3 70 18 147/93 Room Air 05/10/16 04:12 99 Test 05/07/16 19:19 05/07/16 21:59 05/08/16 10:30 05/10/16 02:20 Prothrombin Time 9.7sec (8.1-12.5) Prothromb Time International Ratio 0.91ratio Lactic Acid Level 1.4mmol/L (0.4-2.0) Magnesium Level 1.9mg/dL (1.6-2.6) Total Bilirubin 0.2mg/dL (0.0-1.2) Aspartate Amino Transf (AST/SGOT) 21U/L (0-50) Alanine Aminotransferase (ALT/SGPT) 15U/L (0-32) Alkaline Phosphatase 122U/L (25-150) Total Protein 8.2g/dL (6.4-8.4) Albumin 4.0g/dL (3.4-5.0) Random Vancomycin Level 2.3ug/mL Rx Urine Color Yellow (YELLOW) Urine Appearance Clear (CLEAR,HAZY) Urine pH 6.0 (5.0-8.0) Urine Specific [place] 1.010 (1.003-1.035) Urine Protein Negativemg/dL (NEG,TRACE) Urine Glucose (UA) Negativemg/dL (NEGATIVE) Urine Ketones Negativemg/dL (NEGATIVE) Urine Occult Blood Small (NEGATIVE) Urine Nitrite Negative (NEGATIVE) Urine Bilirubin Negative (NEGATIVE) Urine Urobilinogen Normalmg/dL (NORMAL) Urine Leukocyte Esterase Trace (NEGATIVE) Urine RBC 0-2/hpf (0-2) Urine WBC 6-10/hpf (0-5) Urine Epithelial Cells Many/hpf (NONE-MOD) Urine Crystals None seen (NONE SEEN) Urine Bacteria Moderate/hpf (NONE-FEW) Urine Hyaline Casts None/lpf (NONE) Urine Granular Casts None seen (NONE SEEN) Urine Waxy Casts None seen (NONE SEEN) Urine Red Blood Cell Casts None seen (NONE SEEN) Urine White Blood Cell Casts None seen (NONE SEEN) Urine Mucus None seen (None Seen) Urine Trichomonas None seen (NONE SEEN) Urine Yeast None (NONE SEEN) Urinalysis Comment None Urine Culture Reflexed Indicated Urine Opiates Screen Positive Urine Methadone Screen Negative Urine Barbiturates Screen Negative Urine Amphetamines Screen Positive Urine Benzodiazepines Screen Negative Urine Cocaine Metabolite Screen Negative Urine Cannabinoids Screen Negative White Blood Count 10.4th/mm3 (3.8-10.1) Red Blood Count 4.64mil/mm3 (3.90-5.20) Hemoglobin 13.4g/dL (12.0-15.6) Hematocrit 39.5% (35.0-46.0) Mean Corpuscular Volume 85.1fL (81-100) Mean Corpuscular Hemoglobin 28.9pg (27.0-35.0) Mean Corpuscular Hemoglobin Concent 33.9% (32.0-37.0) Red Cell Distribution Width 13.3% (12.3-15.4) Platelet Count 285bil/L (150-400) Neutrophils (%) (Auto) 51.7% (40-74) Lymphocytes (%) (Auto) 32.9% (14-46) Monocytes (%) (Auto) 11.0% (4-12) Eosinophils (%) (Auto) 2.1% (0-5) Basophils (%) (Auto) 0.6% (0-3) Sodium Level 140mEq/L (134-144) Potassium Level 4.5mEq/L (3.5-5.2) Chloride Level 103mEq/L (97-108) Carbon Dioxide Level 27mmol/L (18-29) Blood Urea Nitrogen 10mg/dL (6-24) Creatinine 0.75mg/dL (0.57-1.00) Estimat Glomerular Filtration Rate 115mL/min (>59) Glucose Level 97mg/dL (60-99) Calcium Level 8.9mg/dL (8.5-10.1) C-Reactive Protein 0.2mg/dL (0.0-0.5) Procalcitonin 0.76ng/mL (See Comment) Discharge Medications Discharge Medications Carvedilol (Carvedilol) 12.5 Mg Tablet 12.5 MG PO BID (Reported) Ciprofloxacin Hcl (Cipro (eq) 500 MG-6 Tab Prepack) 1 Pkg Pkg 500 MG PO BID ( Reported) Lactobacillus Acidophilus (Acidophilus Probiotic) 1 Mg Tablet 1 TAB PO DAILY ( Reported) As needed Alprazolam (Alprazolam) 0.5 Mg Tablet 0.5 MG PO TID PRN PRN For Anxiety ( Reported) Calcium Carbonate (Tums) 500 Mg Tab.chew 1,000 MG PO DAILY PRN PRN For Dyspepsia or Heartburn (Reported) oxyCODONE-Acetaminophen 10-325 mg (oxyCODONE-Acetaminophen 10-325 mg) 1 Each Tablet 1 TAB PO 5XD PRN PRN For Pain (Reported) Followup Plan Disposition: Home Follow-up plan 1. Return to the [facility] (at [facility]) in one week to get a second 1.5 g dose of Dalbavancin in outpatient setting 2. Followup with Dr. Escobedo at infectious disease (ID) clinic on May 22, 2016 3. Followup with your primary care provider in 3-7 days Discharge Diet: Low fat, Low Sodium, Heart Healthy Discharge Activity: No restrictions Patient Instructions Seek immediate medical attention if any new or worsening signs or symptoms occur. Follow-up Provider: Denis Escobedo MD Time spent 30 min copies to: Denis Escobedo MD, Masoud May 10, 2016 19:08
== END 2016-05-10 12:02 | disposition home or self-care (01) | DRG 347 ==
LOC: SED 17:52 → MOC 20:32
PROVIDERS: ADMIT Hospitalist; ATTEND Hospitalist
DX: M46.44 Discitis, unspecified, thoracic region (principal); M46.24 Osteomyelitis of vertebra, thoracic region; K55.1 Chronic vascular disorders of intestine; F41.9 Anxiety disorder, unspecified; J44.9 Chronic obstructive pulmonary disease, unspecified; K21.9 Gastro-esophageal reflux disease without esophagitis; I10 Essential (primary) hypertension; F17.210 Nicotine dependence, cigarettes, uncomplicated; B18.2 Chronic viral hepatitis C; Z79.51 Long term (current) use of inhaled steroids